=== PATIENT | male | born 1960 | race Caucasian/White ===

== ENCOUNTER 2017-02-03 17:40 | Emergency (ER) | payer MEDICARE ==
[~2017-02-03 17:40] MED LIST: AMBIEN5 MG PO; GLUCOVANCE 2.5-1 TAB PO; HCTZ25 MG PO; HYDRALAZINE HC100 MG PO; HYDRALAZINE HCL25 MG PO; MYFORTIC360 MG PO; NEURONTIN 300300 MG PO; OMEPRAZOLE20 M1 PO; OYST-CAL-5001 TAB PO; PRAVACHOL20 MG PO; PRAVASTATIN SOD10 MG PO; SYNTHROID75 MCG PO; TACROLIMUS ANHYD1 MG PO; TOPROL XL50 MG PO
[2017-02-03 20:30] LABS: ALBUMIN 3.7 g/dL (3.4-5.0); ALKALINE PHOSPHATASE 75 U/L (46-116); ALT (SGPT) 23 U/L (10-68); CALC OSMOLALITY 281 mosm/kg (275-300); CALCIUM 9.3 mg/dL (8.5-10.1); CARBON DIOXIDE 27.7 mmol/L (21.0-32.0); CHLORIDE - SERUM 102 mmol/L (98-107); CREATININE - SERUM 0.9 mg/dL (0.6-1.3); GLUCOSE 106 mg/dL (74-106); POTASSIUM - SERUM 3.8 mmol/L (3.5-5.1); PROTEIN - SERUM 7.5 g/dL (6.4-8.2); SODIUM 139 mmol/L (136-145); UREA NITROGEN 23 mg/dL (7-18); eGFR NON AFRICAN AMERICAN > 90 mL/min (90-120)
[2017-02-03 20:35] LABS: CREATINE KINASE 44 UL (21-232); MAGNESIUM - SERUM 1.5 mg/dL (1.8-2.4); PRO BNP 160 pg/mL (0-125); TROPONIN-I < 0.017 ng/mL (0.000-0.060)
[2017-02-03 20:46] LABS: BASOPHILS 0.1 % (0-2); EOSINOPHILS 0.9 % (0-7); HEMATOCRIT 41.3 % (42.0-54.0); HEMOGLOBIN 13.5 g/dL (13.5-17.5); IMMATURE GRANULOCYTES 0.2 % (0-5); LYMPHOCYTES 31.8 % (15-50); MCH 31.3 pg (26.0-34.0); MCHC 32.7 g/dL (31.0-37.0); MCV 95.6 fL (80.0-100.0); MEAN PLATELET VOLUME 10.6 fL (7.4-10.4); MONOCYTES 9.1 % (2-11); NEUTROPHILS 57.9 % (40-80); PLATELET COUNT 212 10x3/uL (130-400); RBC 4.32 10x6/uL (4.20-6.10); WBC 8.6 10x3/uL (4.8-10.8)
== END 2017-02-03 22:51 | disposition home or self-care (01) ==
LOC: D.ER 17:40
PROVIDERS: Emergency Medicine
DX: J06.9 Acute upper respiratory infection, unspecified (principal); J81.0 Acute pulmonary edema; E11.9 Type 2 diabetes mellitus without complications; I10 Essential (primary) hypertension

== ENCOUNTER → 2017-03-01 10:25 | Outpatient (CLI) | payer MEDICARE | END | disposition home or self-care (01) | LOC: D.MRI 10:25 | DX: M54.16 Radiculopathy, lumbar region (principal) ==

== ENCOUNTER → 2018-07-19 10:33 | Outpatient (CLI) | payer MEDICARE | END | disposition home or self-care (01) | LOC: D.CT 10:33 | PROVIDERS: ATTEND Emergency Medicine | DX: R91.1 Solitary pulmonary nodule (principal) ==

== ENCOUNTER → 2018-12-05 14:58 | Outpatient (CLI) | payer MEDICARE | END | disposition home or self-care (01) | LOC: D.RT 14:58 | PROVIDERS: ATTEND Internal Medicine Pulmonary Disease | DX: R91.1 Solitary pulmonary nodule (principal) ==

== ENCOUNTER → 2018-12-12 10:15 | Outpatient (CLI) | payer MEDICARE ==
[2018-12-13 11:10] LABS: ANA REFLEX - DIRECT Negative (Negative)
[2018-12-14 14:11] LABS: ANCA - ANTIMYELOPEROXIDASE <9.0 U/mL (0.0-9.0); ANCA - ANTIPROTEINASE 3 <3.5 U/mL (0.0-3.5); ANCA - ATYPICAL <1:20 titer (Neg:<1:20); ANCA - CYTOPLASMIC <1:20 titer (Neg:<1:20); ANCA - PERINUCLEAR <1:20 titer (Neg:<1:20)
== END | disposition home or self-care (01) ==
LOC: D.LABREF 10:15
PROVIDERS: ATTEND Internal Medicine Pulmonary Disease
DX: J84.10 Pulmonary fibrosis, unspecified (principal)

== ENCOUNTER → 2019-05-14 09:18 | Outpatient (CLI) | payer MEDICARE | END | disposition home or self-care (01) | LOC: D.CT 09:18 | PROVIDERS: ATTEND Internal Medicine Pulmonary Disease | DX: J84.10 Pulmonary fibrosis, unspecified (principal) ==

== ENCOUNTER → 2019-05-22 08:07 | Outpatient (CLI) | payer MEDICARE | END | disposition home or self-care (01) | LOC: D.MRI 08:07 | PROVIDERS: ATTEND Clinical Nurse Specialist Family Health | DX: R22.31 Localized swelling, mass and lump, right upper limb (principal) ==

== ENCOUNTER 2019-09-13 10:45 | Inpatient (IN) | payer MEDICARE ==
[2019-09-13] VITALS (7 sets, daily range): BP systolic 105–117; BP diastolic 43–56; BMI 30.1
[~2019-09-13] VITALS: Ht 165.1 cm; Wt 82.1 kg
[2019-09-13 11:12] LABS: BASOPHILS 0 % (0-2); EOSINOPHILS 0 % (0-7); HEMATOCRIT 32.4 % (42.0-54.0); HEMOGLOBIN 10.8 g/dL (13.5-17.5); LYMPHOCYTES 19.6 % (15-50); MCH 30.8 pg (26.0-34.0); MCHC 33.3 g/dL (31.0-37.0); MCV 92.3 fL (80.0-100.0); MEAN PLATELET VOLUME 10.4 fL (7.4-10.4); MONOCYTES 8.5 % (2-11); NEUTROPHILS 71.9 % (40-80); PLATELET COUNT 110 10x3/uL (130-400); RBC 3.51 10x6/uL (4.20-6.10); RDW 13.5 % (11.5-14.5); WBC 3.6 10x3/uL (4.8-10.8)
[2019-09-13 11:19] LABS: CALC OSMOLALITY 272 mosm/kg (275-300); CALCIUM 8.6 mg/dL (8.5-10.1); CARBON DIOXIDE 18.7 mmol/L (21.0-32.0); CHLORIDE - SERUM 96 mmol/L (98-107); CREATININE - SERUM 5.9 mg/dL (0.6-1.3); GLUCOSE 100 mg/dL (74-106); POTASSIUM - SERUM 4.2 mmol/L (3.5-5.1); SODIUM 127 mmol/L (136-145); UREA NITROGEN 63 mg/dL (7-18); eGFR NON AFRICAN AMERICAN 10 mL/min (90-120)
[2019-09-13 11:37] LABS: ALBUMIN 3.4 g/dL (3.4-5.0); ALKALINE PHOSPHATASE 62 U/L (30-120); ALT (SGPT) 43 U/L (10-68); BILIRUBIN - TOTAL 0.45 mg/dL (0.2-1.3); CKMB 1.1 U/L (0.0-3.6); CREATINE KINASE 57 UL (21-232); PRO BNP 976 pg/mL (0-125); TROPONIN-I < 0.017 ng/mL (0.000-0.060)
[2019-09-13 11:38] LABS: INR 1.06 (0.85-1.17); PROTIME 13.7 SECONDS (11.6-15.0)
--- NOTE | 2019-09-13 15:42 | NUR ---
TRANSFER FROM ER BY STRETCHER. CALL LIGHT IN REACH. WILL CONT. PLAN OF CARE.
[2019-09-13 15:49] LABS: URIC ACID 11.4 mg/dL (2.6-7.2)
[2019-09-13 18:14] LABS: CKMB 0.8 U/L (0.0-3.6); CREATINE KINASE 65 UL (21-232); TROPONIN-I < 0.017 ng/mL (0.000-0.060)
[2019-09-13 23:07] LABS: CKMB 0.7 U/L (0.0-3.6); CREATINE KINASE 123 UL (21-232)
[2019-09-13 23:08] LABS: TROPONIN-I < 0.017 ng/mL (0.000-0.060)
[2019-09-14] VITALS: BP 92/41
[2019-09-14 02:12] LABS: BILIRUBIN NEGATIVE (NEGATIVE); GLUCOSE NEGATIVE (NEGATIVE); KETONE NEGATIVE (NEGATIVE); NITRITE NEGATIVE (NEGATIVE); UROBILINOGEN NORMAL (NORMAL)
[2019-09-14 02:14] LABS: BACTERIA MODERATE /hpf (NEGATIVE); EPITHELIAL CELLS 0-5 /hpf (0-5); GRANULAR CAST 0-5 /lpf (NONE SEEN); RED CELLS - URINE 0-5 /hpf (0-5); URIC ACID CRYSTALS 0-5 \\hpf (NONE SEEN); WHITE CELLS - URINE 0-5 /hpf (NEGATIVE)
[2019-09-14 04:00] VITALS: BP 90/40
[2019-09-14 04:35] LABS: BASOPHILS 0 % (0-2); EOSINOPHILS 0 % (0-7); HEMATOCRIT 27.8 % (42.0-54.0); HEMOGLOBIN 9.1 g/dL (13.5-17.5); IMMATURE GRANULOCYTES 0.3 % (0-5); LYMPHOCYTES 15.9 % (15-50); MCH 30.4 pg (26.0-34.0); MCHC 32.7 g/dL (31.0-37.0); MEAN PLATELET VOLUME 11.3 fL (7.4-10.4); MONOCYTES 7.2 % (2-11); NEUTROPHILS 76.6 % (40-80); RBC 2.99 10x6/uL (4.20-6.10); RDW 13.4 % (11.5-14.5); WBC 2.9 10x3/uL (4.8-10.8)
[2019-09-14 04:50] LABS: PLATELET COUNT 87 10x3/uL (130-400)
[2019-09-14 04:51] LABS: PLATELET ESTIMATE DECREASED
[2019-09-14 04:59] LABS: ALBUMIN 2.7 g/dL (3.4-5.0); ALKALINE PHOSPHATASE 48 U/L (30-120); BILIRUBIN - TOTAL 0.37 mg/dL (0.2-1.3); CALC OSMOLALITY 281 mosm/kg (275-300); CALCIUM 7.7 mg/dL (8.5-10.1); CARBON DIOXIDE 18.8 mmol/L (21.0-32.0); CHLORIDE - SERUM 102 mmol/L (98-107); CKMB 0.5 U/L (0.0-3.6); CREATINE KINASE 49 UL (21-232); CREATININE - SERUM 4.6 mg/dL (0.6-1.3); GLUCOSE 122 mg/dL (74-106); MAGNESIUM - SERUM 2.2 mg/dL (1.8-2.4); POTASSIUM - SERUM 4.4 mmol/L (3.5-5.1); PROTEIN - SERUM 5.6 g/dL (6.4-8.2); SODIUM 131 mmol/L (136-145); TROPONIN-I < 0.017 ng/mL (0.000-0.060); UREA NITROGEN 63 mg/dL (7-18); eGFR NON AFRICAN AMERICAN 14 mL/min (90-120)
[2019-09-14 05:08] LABS: ALT (SGPT) 28 U/L (10-68)
[2019-09-14 09:26] VITALS: BP 98/44
[2019-09-14 12:00] VITALS: BP 169/54
[2019-09-14 12:12] VITALS: BMI 30.1
--- NOTE | 2019-09-14 19:00 | NUR ---
RECEIVED BEDSIDE REPORT. PATIENT IS ALERT AND ORIENTED, RESTING COMFORTABLY IN BED. RESPIRATIONS ARE EVEN AND UNLABORED. NO S/S OF DISTRESS. NO C/O PAIN. CALL LIGHT WITHIN REACH. WILL CPOC.
--- NOTE | 2019-09-14 20:29 | NUR ---
INFORMED BY CLAY ARTIST THAT PATIENT TEMP. 102.2. PATIENT GIVEN TYLENOL AND ICE PACKS PLACE UNDER ARMS AND GROIN AREA. WILL RECHECK TEMPERTURE IN 30 MINUTES.
--- NOTE | 2019-09-14 21:43 | NUR ---
RECHECKED PATIENT TEMP. 99.7. PATIENT RESTING COMFORTABLY IN BED. RESPIRATIONS ARE EVEN AND UNLABORED. NO S/S OF DISTRESS. NO C/O PAIN. CALL LIGHT WITHIN REACH. WILL CPOC.
[2019-09-15 04:00] VITALS: BP 116/41
[2019-09-15 05:20] LABS: BASOPHILS 0 % (0-2); EOSINOPHILS 0 % (0-7); HEMATOCRIT 28.5 % (42.0-54.0); HEMOGLOBIN 9.3 g/dL (13.5-17.5); IMMATURE GRANULOCYTES 0.3 % (0-5); LYMPHOCYTES 11.6 % (15-50); MCH 30.2 pg (26.0-34.0); MCHC 32.6 g/dL (31.0-37.0); MCV 92.5 fL (80.0-100.0); MEAN PLATELET VOLUME 11.7 fL (7.4-10.4); MONOCYTES 5.3 % (2-11); NEUTROPHILS 82.8 % (40-80); PLATELET COUNT 75 10x3/uL (130-400); RBC 3.08 10x6/uL (4.20-6.10); RDW 13.3 % (11.5-14.5); WBC 3.2 10x3/uL (4.8-10.8)
[2019-09-15 05:58] LABS: ALBUMIN 2.5 g/dL (3.4-5.0); ANION GAP 15.8 mmol/L (8-16); BILIRUBIN - TOTAL 0.47 mg/dL (0.2-1.3); CALCIUM 7.6 mg/dL (8.5-10.1); CARBON DIOXIDE 15.8 mmol/L (21.0-32.0); MAGNESIUM - SERUM 2.2 mg/dL (1.8-2.4); POTASSIUM - SERUM 4.6 mmol/L (3.5-5.1); PROTEIN - SERUM 5.6 g/dL (6.4-8.2)
[2019-09-15 06:02] LABS: CREATININE - SERUM 3.3 mg/dL (0.6-1.3)
[2019-09-15 09:00] VITALS: BP 95/38
--- NOTE | 2019-09-15 12:55 | NUR ---
PT TRANSFERED TO ROOM 2130, DUE TO POSSIBLE COVID 19, PLACED ON DROPLET ISOLATION. ORIENTED PT TO ROOM AND CALL LIGHT, 650MG OF TYLENOL GIVEN FOR FEVER OF 101. IVPB ZOSYN HUNG AT THIS TIME. PROVIDED PT WITH CUP OF WATER. COVID 19 TEST DONE AND SENT TO LAB. PT DENIES ANY NEEDS AT THIS TIME. CALL LIGHT IN REACH,NAD NOTED,W ILL CONTINUE PLAN OF CARE.
[2019-09-15 14:56] LABS: APTT 44.2 SECONDS (22.8-39.4); INR 1.31 (0.85-1.17); PROTIME 16.2 SECONDS (11.6-15.0)
[2019-09-15 15:14] VITALS: Ht 165.1 cm; Wt 82.1 kg
[2019-09-15 16:57] VITALS: BP 87/48
--- NOTE | 2019-09-15 20:00 | NUR ---
REPORT RECEIVED AND ROUNDING COMPLETE. LAB CALLED AND STATES PATIENT WAS COVID (-). MOVED PATIENT FROM ROOM 2130 TO 2135. REMOVED LEFT PIV AC BECAUSE IT IS SWELLING AND PAINFUL. PLACED A NEW 20 GAUGE TO RIGHT WRIST/FOREARM, RESTARTED FLUIDS. PATIENT IS ON ROOM AIR. NO DISTRESS NOTED. CALL LIGHT WITHIN REACH AND BED IN LOWEST LOCKED POSITION.
[2019-09-16 00:30] VITALS: BP 104/46
[2019-09-16 04:40] VITALS: BP 108/44
[2019-09-16 09:01] VITALS: BP 111/41
--- NOTE | 2019-09-16 09:17 | NUR ---
PT AWAKE AND ORIENTED SITTING ON ISDE OF OTHE BED. STATES HE'S EXTREMELEY TIRED AND JUST WISHES HE KNEW WHAT WAS GOING ON WITH HIM. ANSWERED QUESTIONS TO THE BEST OF MY ABILITY. TOOK MEDICATIONS WITHOUT COMPLICATIONS. CL IN REACH,S RX2
--- NOTE | 2019-09-16 10:20 | NUR ---
I have reviewed this patient and I concur with the Shift Assessment completed by the Licensed Practical Nurse today this shift.
[2019-09-16 11:34] LABS: HEMATOCRIT 25.1 % (42.0-54.0); HEMOGLOBIN 8.3 g/dL (13.5-17.5); MCH 30.1 pg (26.0-34.0); MCHC 33.1 g/dL (31.0-37.0); MCV 90.9 fL (80.0-100.0); MEAN PLATELET VOLUME 11.1 fL (7.4-10.4); PLATELET COUNT 60 10x3/uL (130-400); RBC 2.76 10x6/uL (4.20-6.10); RDW 13.7 % (11.5-14.5); WBC 2.8 10x3/uL (4.8-10.8)
[2019-09-16 11:56] LABS: ALBUMIN 2.3 g/dL (3.4-5.0); BILIRUBIN - TOTAL 0.35 mg/dL (0.2-1.3); CARBON DIOXIDE 18.3 mmol/L (21.0-32.0); CREATININE - SERUM 2.7 mg/dL (0.6-1.3); EOSINOPHILS 1 % (0-7); LYMPHOCYTES 5 % (15-50); MAGNESIUM - SERUM 1.9 mg/dL (1.8-2.4); MONOCYTES 1 % (2-11); NEUTROPHILS 87 % (40-80); PLATELET ESTIMATE DECREASED; VANCOMYCIN - RANDOM 7.5 ug/mL (10.0-20.0)
[2019-09-16 11:57] LABS: ANION GAP 14.6 mmol/L (8-16); POTASSIUM - SERUM 3.9 mmol/L (3.5-5.1)
--- NOTE | 2019-09-16 12:40 | MORECARE ---
CASE MANAGEMENT DISCHARGE SUMMARY PATIENT: SHAE STAPLES UNIT: [id number] ADM DATE: 09/13/19 AGE: 58 : 60 SEX: M ROOM/BED: D.2136 AUTHOR: NINA TRISTAN PHYSICIAN: REFERRING PHYSICIAN: NATALIA HERNANDEZ MD DATE OF SERVICE: 09/16/19 Discharge Plan Patient Name: SHAE STAPLES [facility] [facility] 1960 Planned Disposition: Anticipated Discharge Date: Discharge Date: Expected LOS: Initial Reviewer: [email or web address] Initial Review Date: 09/13/2019 Generated: 09/16/19 1:39 pm Comments DCP- Discharge Planning Updated by [email or web address]: Sayra Grey on 09/16/19 10:[address] CM received notification that physician and family requesting transfer to [facility]. CM contacted transfer center and spoke with Ada arreguin facesheet to transfer center. CM notified [employer] salesperson household appliances of transfer request. Patient is needing transfer to higher level of care for infectious disease. CM will continue to follow and assist as needed with discharge planning / needs. External Providers External Provider: [facility]ANS-TRANSFER CALL CENTER Next Contact Date: Service Request Date: Service Type: Resolution: Reviewer: Comments: Patient Name: SHAE STAPLES Page [id number] at 1240 All edits/amendments must be made on the electronic document DICTATION DATE: 09/16/19 1239 NUCLEAR EQUIPMENT TEST ENGINEER: STEFANO 09/16/19 1239 RPT#: [id number] DC DATE: STATUS: ADM IN [facility] [address] [place] [address] END OF REPORT
--- NOTE | 2019-09-16 12:58 | NUR ---
CT TO NOTIFY DR RAMIREZ WITH REPORT FROM SCAN. PT ESCORTED TO [facility]
[2019-09-16 13:28] VITALS: BP 91/37
[2019-09-16 13:30] LABS: INR 1.17 (0.85-1.17); PROTIME 14.8 SECONDS (11.6-15.0)
[2019-09-16 13:31] LABS: APTT 40.9 SECONDS (22.8-39.4)
--- NOTE | 2019-09-16 13:40 | NUR ---
PT AWAKE AND ORIENTED, LYING IN BED. PT TO BE TRANSFERED TO [facility] WHEN BED BECOMES [place]. WILL CNT TO MONITOR SITUATION.
[2019-09-16] MEDS ORDERED: VIBRAMYCIN 100100 MG PO (15:40)
[2019-09-16] MEDS ORDERED: ZOSYN 2.25 GM2.25 G1 IV (15:40)
[2019-09-16] MEDS ORDERED: MYCAMINE 100MG100 M1 IV (15:40)
--- NOTE | 2019-09-16 18:39 | MORECARE ---
CASE MANAGEMENT DISCHARGE SUMMARY PATIENT: SHAE STAPLES UNIT: [id number] ADM DATE: 09/13/19 AGE: 58 : 60 SEX: M ROOM/BED: D.2136 AUTHOR: NINA TRISTAN PHYSICIAN: REFERRING PHYSICIAN: NATALIA HERNANDEZ MD DATE OF SERVICE: 09/16/19 Discharge Plan Patient Name: SHAE STAPLES [facility] [facility] 1960 Planned Disposition: Anticipated Discharge Date: Discharge Date: Expected LOS: Initial Reviewer: [email or web address] Initial Review Date: 09/13/2019 Generated: 09/16/19 7:39 pm Comments DCP- Discharge Planning Updated by [email or web address]: Sayra Grey on 09/16/19 5:[address] Patient has been accepted to [facility] awaiting fax from [facility] / transfer center regarding transfer back agreement. CM has spoken with transfer center multiple times and given fax to [facility] 2 - [phone] once [facility] receives transfer back agreement then they will issue room and patient can transfer. DCP- Discharge Planning Updated by [email or web address]: Sayra Grey on 09/16/19 10:[address] CM received notification that physician and family requesting transfer to [facility]. CM contacted transfer center and spoke with Ada arreguin facesheet to transfer center. [facility]. Patient is needing transfer to higher level of care for infectious disease. CM will continue to follow and assist as needed with discharge planning / needs. Last DP export: 09/16/19 11:40 am Patient Name: SHAE STAPLES Page [id number] at 1839 All edits/amendments must be made on the electronic document DICTATION DATE: 09/16/191838 GEOPHYSICAL OPERATOR: STEFANO 09/16/191838 RPT#: [id number] DC DATE: STATUS: ADM IN [facility] [address] [place] [address] END OF REPORT
--- NOTE | 2019-09-16 19:15 | NUR ---
I ENTERED PTS ROOM AND PT WAS VERY ROUGH WITH HIS LANGUAGE TOWARD ME ACUSING ME OF [employer] CARER I TOLD PT THIS IS THE FIRST I HAVE EVEN LAID EYES ON YOU THAT I WAS JUST TAKING OVER CARE AND WANTED TO GIVE HIM A TRANSFER UPDATE HE THEN ASKED ME WHY I HAVE NOIT GOT AN IV STARTED ON HIM I AGAIN EXPLAINED THAT I WAS JUST TAKING OVER CARE PT BECAME MORE IRATE ANOTHER NURSE IS HERE NOW TO START IV BED LOW AND LOCKED PREVIOUS NURSE IS SETTING UP TRANSFER
--- NOTE | 2019-09-16 19:52 | NUR ---
SPOKE TO TRANSFER CENTER, [facility] RN, AND [facility]. 22G RH IV PLACED BY APPLICATION SECURITY SPECIALIST RN. ALL APPROPRIATE PAPERWORK SIGNED. AMBULANCE WILL BE HERE IN APPROXIAMETELY 45MINUTES TO AN HOUR. INFORMED NIGHT RN APARNA TO CALL WITH UPDATE WHEN AMBULANCE ARRIVES. CL IN REACH,S RX2.
--- NOTE | 2019-09-17 08:01 | MORECARE ---
CASE MANAGEMENT DISCHARGE SUMMARY PATIENT: SHAE STAPLES UNIT: [id number] ADM DATE: 09/13/19 AGE: 58 : 60 SEX: M ROOM/BED: D.2136 AUTHOR: NINA TRISTAN PHYSICIAN: REFERRING PHYSICIAN: NATALIA HERNANDEZ MD DATE OF SERVICE: 09/17/19 Discharge Plan Patient Name: SHAE STAPLES [facility] [facility] 1960 Planned Disposition: Anticipated Discharge Date: Discharge Date: 09/16/2019 Expected LOS: Initial Reviewer: [email or web address] Initial Review Date: 09/13/2019 Generated: 09/17/19 9:00 am Comments DCP- Discharge Planning Updated by [email or web address]: Sayra Grey on 09/16/19 5:[address] Patient has been accepted to [facility] awaiting fax from [facility] / transfer center regarding transfer back agreement. CM has spoken with transfer center multiple times and given fax to [facility] 2 - [phone] once [facility] receives transfer back agreement then they will issue room and patient can transfer. DCP- Discharge Planning Updated by [id number]: Sayra Grey on 09/16/19 10:[address] CM received notification that physician and family requesting transfer to [facility]. CM contacted transfer center and spoke with Ada sent facesheet to transfer center. [facility]. Patient is needing transfer to higher level of care for infectious disease. CM will continue to follow and assist as needed with discharge planning / needs. Last DP export: 09/16/19 5:39 pm Patient Name: SHAE STAPLES Page [id number] at 0801 All edits/amendments must be made on the electronic document DICTATION DATE: 09/17/19 08 ENGINEER SYSTEM ADMINISTRATOR: STEFANO 09/17/19 08 RPT#: [id number] DC DATE:09/16/19 STATUS: DIS IN [facility] [address] [place] [address] END OF REPORT
== END 2019-09-16 23:30 | disposition short-term general hospital (02) | DRG 683 ==
LOC: D.ER 10:45 → D.M2 14:10
PROVIDERS: Family Medicine; Internal Medicine Hematology & Oncology; Internal Medicine Nephrology; ADMIT Family Medicine; ATTEND Family Medicine
DX: N17.9 Acute kidney failure, unspecified (principal); L03.116 Cellulitis of left lower limb; D61.818 Other pancytopenia; E87.1 Hypo-osmolality and hyponatremia; Z94.4 Liver transplant status; Z94.0 Kidney transplant status; E11.65 Type 2 diabetes mellitus with hyperglycemia; I10 Essential (primary) hypertension; E03.9 Hypothyroidism, unspecified; D64.9 Anemia, unspecified; I95.9 Hypotension, unspecified; E78.5 Hyperlipidemia, unspecified; R33.9 Retention of urine, unspecified; R06.6 Hiccough

== ENCOUNTER → 2019-11-16 11:12 | Outpatient (CLI) | payer MEDICARE ==
[2019-09-15 15:14] VITALS: BMI 30.1
[~2019-11-16 11:12] MED LIST changes: +MYCAMINE 100MG100 M1 IV; +VIBRAMYCIN 100100 MG PO; +ZOSYN 2.25 GM2.25 G1 IV
== END | disposition home or self-care (01) ==
LOC: D.RT 11:00 → D.CT 11:12 → D.RT 11:12 → D.CT 11:30
PROVIDERS: ATTEND Internal Medicine Pulmonary Disease
DX: R06.00 Dyspnea, unspecified (principal)

== ENCOUNTER → 2019-11-20 12:19 | Outpatient (CLI) | payer MEDICARE ==
[2019-09-15 15:14] VITALS: BMI 30.1
== END | disposition home or self-care (01) ==
LOC: D.LAB 12:19
PROVIDERS: ATTEND Internal Medicine Pulmonary Disease
DX: Z13.9 Encounter for screening, unspecified (principal)

== ENCOUNTER → 2019-11-23 10:17 | Outpatient (CLI) | payer MEDICARE ==
[2019-09-15 15:14] VITALS: BMI 30.1
== END | disposition home or self-care (01) ==
LOC: D.RT 10:17
PROVIDERS: ATTEND Internal Medicine Pulmonary Disease
DX: R06.00 Dyspnea, unspecified (principal)

== ENCOUNTER → 2020-07-04 07:45 | Outpatient (CLI) | payer MEDICARE ==
[2019-09-15 15:14] VITALS: BMI 30.1
== END | disposition home or self-care (01) ==
LOC: D.CT 07:45
PROVIDERS: ATTEND Internal Medicine Pulmonary Disease
DX: J84.10 Pulmonary fibrosis, unspecified (principal)

== ENCOUNTER 2020-08-13 08:51 | Day surgery (SDC) | payer MEDICARE ==
[~2020-08-13] VITALS: Ht 165.1 cm; Wt 73.0 kg
[2020-08-13 09:14] LABS: BASOPHILS 0.6 % (0-2); EOSINOPHILS 0.5 % (0-7); HEMATOCRIT 36.2 % (42.0-54.0); HEMOGLOBIN 12.4 g/dL (13.5-17.5); LYMPHOCYTES 33.4 % (15-50); MCH 31.2 pg (26.0-34.0); MCHC 34.2 g/dL (31.0-37.0); MCV 91.4 fL (80.0-100.0); MEAN PLATELET VOLUME 8.4 fL (7.4-10.4); MONOCYTES 8.2 % (2-11); NEUTROPHILS 57.3 % (40-80); RBC 3.96 10x6/uL (4.20-6.10); RDW 15.1 % (11.5-14.5); WBC 6.1 10x3/uL (4.8-10.8)
[2020-08-13 09:16] LABS: PLATELET COUNT 227 10x3/uL (130-400)
[2020-08-13 09:24] LABS: APTT 29.6 SECONDS (22.8-39.4); INR 0.98 (0.85-1.17)
[2020-08-13 10:34] VITALS: BP 162/66; Ht 165.1 cm; Wt 73.0 kg
--- NOTE | 2020-08-13 16:49 | NUR ---
[address] LOREDO . NOTIFIED HIM OF PTS PROGRESS AND CXR RESULTS. ORDERS GIVEN AND NOTED. 1400 FOOD TRAY ARRIVED. 1420 IV REMOVED AND PRESSURE HELD, INSTRUCTIONS GIVEN. 1445 DR LOREDO IN ROOM TALKING TO PT. 1610 PTS RIDE HERE
[2020-08-14 18:08] LABS: ACID FAST SMEAR Negative (()); AFB SPECIMEN PROCESSING Concentration (())
[2020-08-15 12:12] LABS: FUNGUS STAIN Final report (())
== END 2020-08-13 16:10 | disposition home or self-care (01) ==
LOC: D.OPS 08:51
PROVIDERS: ATTEND Internal Medicine Pulmonary Disease
DX: J98.11 Atelectasis (principal); J84.10 Pulmonary fibrosis, unspecified; N18.6 End stage renal disease; J44.9 Chronic obstructive pulmonary disease, unspecified; R06.00 Dyspnea, unspecified; G47.33 Obstructive sleep apnea (adult) (pediatric); F17.200 Nicotine dependence, unspecified, uncomplicated